=== PATIENT | female | born 1980 | race Caucasian/White ===

== ENCOUNTER 2021-08-14 18:49 | Inpatient (IN) | payer MEDICAID ==
[~2021-08-14] VITALS: Ht 170.2 cm; Wt 84.5 kg
[2021-08-14 19:40] LABS: CLARITY,URINE CLEAR (Clear); GLUCOSE, URINE NEGATIVE (Neg); KETONES,URINE NEGATIVE (Neg); LEUKOCYTE ESTERASE ,URINE NEGATIVE (Neg); NITRITES, URINE NEGATIVE (Neg); OCCULT BLOOD,URINE TRACE-INTACT (Neg); PROTEIN,URINE NEGATIVE (Neg); UROBILINOGEN,URINE 0.2 E.U/dL (0.2-1.0)
[2021-08-14 19:42] LABS: URINE HCG NEGATIVE (NEG)
[2021-08-14 19:43] LABS: COLOR,URINE YELLOW (Yellow); PH,URINE 8.5 (4.8-8.0); UA COLLECTION TYPE CLN CATCH MIDSTREAM
[2021-08-14 19:43] LABS: BASOPHILS # (AUTO) 0.1 X10'3 (0-0.2); EOSINOPHILS # (AUTO) 0.2 X10'3 (0-0.9); EOSINOPHILS % (AUTO) 4.2 % (0-6); HEMATOCRIT 36.8 % (35.0-45.0); LYMPHOCYTES # (AUTO) 1.6 X10'3 (1.1-4.8); MEAN CORPUSCULAR HEMOGLOBIN 34.6 PG (27.0-31.0); MEAN CORPUSCULAR HGB CONC 35.4 g/dL (33.0-36.5); MEAN CORPUSCULAR VOLUME 97.6 FL (78-98); MEAN PLATELET VOLUME 8.8 FL (7.4-10.4); MONOCYTES # (AUTO) 0.5 X10'3 (0-0.9); MONOCYTES % (AUTO) 9.1 % (2-12); NEUTROPHILS # (AUTO) 2.7 X10'3 (1.8-7.7); NEUTROPHILS % (AUTO) 53.7 % (42-75); PLATELET COUNT 221 X10'3 (140-440); RED BLOOD COUNT 3.77 X10'6 (4.20-5.60); RED CELL DISTRIBUTION WIDTH 13.5 % (11.5-14.5); WHITE BLOOD COUNT 5.1 X10'3 (4.5-11.0)
[2021-08-14 19:51] LABS: BACTERIA,URINE FEW /HPF (Neg); MUCUS STRANDS NONE SEEN /LPF (Neg); RBC,URINE 0-2 /HPF (0-2); SQUAMOUS EPITHELIAL CELL,UR FEW /LPF (FEW); WBC,URINE 0-4 /HPF (0-4)
[2021-08-14 20:01] LABS: ALANINE AMINOTRANSFERASE 19 U/L (12-78); ALBUMIN 3.2 G/DL (3.4-5.0); ALBUMIN/GLOBULIN RATIO 1.2 (1.1-1.5); ALKALINE PHOSPHATASE 44 IU/L (46-116); ANION GAP 3 (8-16); ASPARTATE AMINO TRANSFERASE 14 U/L (10-37); BILIRUBIN,TOTAL 0.2 MG/DL (0.1-1.0); BLOOD UREA NITROGEN 5 MG/DL (7-18); BUN/CREATININE RATIO 8.1 (6.6-38.0); CALCIUM 7.4 MG/DL (8.5-10.1); CHLORIDE 102 MMOL/L (99-107); CREATININE 0.62 MG/DL (0.40-0.90); GLUCOSE 96 MG/DL (70-104); LIPASE < 50 U/L (73-393); POTASSIUM 3.3 MMOL/L (3.5-5.1); SODIUM 137 MMOL/L (135-145); TOTAL CARBON DIOXIDE 32.2 MMOL/L (24-32); TOTAL PROTEIN 5.9 G/DL (6.4-8.2); eGFR > 90 ML/MIN
[2021-08-14] MEDS ORDERED: HYDROcodone/acetaminophen 10/325mg tab PO ONE (20:10)
[2021-08-14] MEDS ORDERED: CefTRIAXone/D5W-Rocephin 1gm 50 ML IV STA (21:41)
[2021-08-14] MEDS ORDERED: magnesium Cl slow-release 64mg tablet PO PRN (22:05)
[2021-08-14] MEDS ORDERED: magnesium 4gm in 100ml NS 100 ML IV PRN (22:05)
[2021-08-14] MEDS ORDERED: potassium Cl 20 mEq SR tablet PO PRN ×2 (22:05)
[2021-08-14] MEDS ORDERED: magnesium 2GM in 50ml NS 50 ML IV PRN (22:05)
[2021-08-14] MEDS ORDERED: mag hydrox/Alum hydrox/simeth 30ml oral suspension PO PRN (22:05)
[2021-08-14] MEDS ORDERED: magnesium hydroxide 30ml (MOM) UD suspension PO PRN (22:05)
[2021-08-14] MEDS ORDERED: potassium CL 10mEq/100ml bag 100 ML IV PRN (22:05)
[2021-08-14] MEDS ORDERED: acetaminophen 325mg tablet PO PRN (22:05)
[2021-08-14] MEDS ORDERED: morphine 2 MG/ML inj. syringe IV PRN (22:05)
[2021-08-14] MEDS ORDERED: ondansetron/PF 4mg/2ml inj IV PRN (22:05)
[2021-08-14] MEDS ORDERED: ESCI10TA PO (22:15)
[2021-08-14 22:29] LABS: MAGNESIUM 1.6 MG/DL (1.5-2.4)
[2021-08-14] MEDS: dextrose 5%-1/2 normal saline 1,000 ML IV SCH (23:01)
[2021-08-14 23:20] VITALS: BP 123/73
--- NOTE | 2021-08-14 23:20 | NUR ---
PATIENT ADMITTED TO ROOM 350B FROM ER FOR ACUTE CHOLECYSTITIS. PLACED COMFORTABLE IN BED. VITAL SIGNS AND TAKEN.
[2021-08-15] VITALS (20 sets, daily range): BP systolic 118–145; BP diastolic 68–92
[2021-08-15] MEDS: metroNIDAZOLE-Flagyl 500mg/NS 100 ML IV SCH ×4 (00:34→23:57)
[2021-08-15] MEDS: morphine 2 MG/ML inj. syringe IV PRN ×4 (05:53→19:53)
[2021-08-15 06:09] LABS: BASOPHILS % (AUTO) 0.6 % (0-1); EOSINOPHILS # (AUTO) 0.2 X10'3 (0-0.9); EOSINOPHILS % (AUTO) 4.9 % (0-6); HEMATOCRIT 35.4 % (35.0-45.0); HEMOGLOBIN 12.4 g/dl (12.0-16.0); LYMPHOCYTES # (AUTO) 1.5 X10'3 (1.1-4.8); LYMPHOCYTES % (AUTO) 29.4 % (21-51); MEAN CORPUSCULAR VOLUME 97.3 FL (78-98); MONOCYTES # (AUTO) 0.5 X10'3 (0-0.9); MONOCYTES % (AUTO) 9.5 % (2-12); NEUTROPHILS # (AUTO) 2.8 X10'3 (1.8-7.7); NEUTROPHILS % (AUTO) 55.6 % (42-75); PLATELET COUNT 204 X10'3 (140-440); RED BLOOD COUNT 3.64 X10'6 (4.20-5.60); RED CELL DISTRIBUTION WIDTH 13.5 % (11.5-14.5)
--- NOTE | 2021-08-15 06:25 | NUR ---
Patient in room [facility]. I have received report from Kat Stephens RN and had the opportunity to ask questions and assume patient care.
--- NOTE | 2021-08-15 06:27 | NUR ---
Problems reprioritized. Patient report given, questions answered & plan of care reviewed with MAJO RN.
[2021-08-15 06:31] LABS: ALANINE AMINOTRANSFERASE 19 U/L (12-78); ALBUMIN/GLOBULIN RATIO 1.2 (1.1-1.5); ALKALINE PHOSPHATASE 40 IU/L (46-116); ASPARTATE AMINO TRANSFERASE 12 U/L (10-37); BILIRUBIN,TOTAL 0.3 MG/DL (0.1-1.0); BLOOD UREA NITROGEN 6 MG/DL (7-18); BUN/CREATININE RATIO 10.9 (6.6-38.0); CALCIUM 7.5 MG/DL (8.5-10.1); CREATININE 0.55 MG/DL (0.40-0.90); GLUCOSE 108 MG/DL (70-104); MAGNESIUM 1.7 MG/DL (1.5-2.4); TOTAL CARBON DIOXIDE 27.8 MMOL/L (24-32); TOTAL PROTEIN 5.6 G/DL (6.4-8.2); eGFR > 90 ML/MIN
[2021-08-15] MEDS ORDERED: INDOCYANINE GREEN 25 MG/10 ML VIAL IV STA (07:19)
[2021-08-15] MEDS: enoxaparin 40mg/0.4ml syringe SUBCUT SCH (07:37)
[2021-08-15] MEDS: docusate sod 100mg capsule PO SCH ×2 (07:45→19:53)
[2021-08-15] MEDS: ciprofloxacin lact 400MG/200ML 200 ML IV SCH ×2 (07:45→19:54)
[2021-08-15] MEDS: K and/or MAG REPLACEMENT MC SCH ×2 (08:00→20:00)
[2021-08-15] MEDS: dextrose 5%-1/2 normal saline 1,000 ML IV SCH ×3 (08:05→23:57)
[2021-08-15] MEDS ORDERED: LIDOcaine 1% 30ml preserv. free vial ONE (08:31)
[2021-08-15] MEDS ORDERED: BUPIVAcaine 0.5% inj/PF 30 ML ONE (08:31)
[2021-08-15 08:36] LABS: PRE OP PARTIAL THROMB. TIME 35 SECONDS (22-32)
[2021-08-15] MEDS ORDERED: sevoflurane 250ml liquid IH ONE (09:02)
[2021-08-15] MEDS ORDERED: albuterol 60 PUFF/8GM Inhaler IH ONE (09:02)
[2021-08-15] MEDS ORDERED: FENTANYL CITRATE/PF 50 MCG/1 ML VIAL ONE ×2 (09:08→09:37)
[2021-08-15] MEDS ORDERED: midazolam 1 mg/ML 2ml injection ONE (09:09)
[2021-08-15] MEDS ORDERED: proCHLORperazine 10 MG/2 ml inj IV PRN (09:55)
[2021-08-15] MEDS ORDERED: morphine 2 MG/ML inj. syringe IV PRN (09:55)
[2021-08-15] MEDS ORDERED: meperidine/PF 25mg/ml syringe IV PRN ×2 (09:55)
[2021-08-15] MEDS ORDERED: ondansetron/PF 4mg/2ml inj IV PRN (09:55)
[2021-08-15] MEDS ORDERED: morphine 4 MG/ML inj SYRINge IV PRN (09:55)
[2021-08-15] MEDS ORDERED: ringers solution, lacted 1,000 ML IV SCH (09:55)
[2021-08-15] MEDS ORDERED: glycopyrrolate 0.2mg/ml inj ONE (10:06)
[2021-08-15] MEDS ORDERED: ondansetron/PF 4mg/2ml inj ONE (10:06)
[2021-08-15] MEDS ORDERED: dexamethasone sod phosphate 4mg/ml inj. ONE (10:06)
[2021-08-15] MEDS ORDERED: propofol inj 20 ML IV ONE (10:06)
[2021-08-15] MEDS ORDERED: LIDOcaine 2% (20mg/ml) 5ml vial ONE (10:06)
[2021-08-15] MEDS ORDERED: neostigmine methylsulfate 1 MG/ML 10ml vial ONE (10:06)
[2021-08-15] MEDS ORDERED: rocuronium 10mg/ml inj IV ONE (10:06)
[2021-08-15] MEDS ORDERED: meperidine/PF 25mg/ml syringe ONE (10:13)
--- NOTE | 2021-08-15 10:23 | NUR ---
Received from OR via hospital bed, accompanied by Anesthesiologist DR SMITH and report given by Anesthesiolgist. PT PRESENTS WITH PIV 20G RIGHT FOREARM, ABD DRESSING CLEAN DRY AND INTACT, VSS. Addendum: 08/15/21 at 1107 by Alicja Mederos RN, RN Amended: Links added.
[2021-08-15] MEDS ORDERED: acetaminophen 1,000mg/100ml IV 100 ML IV SCH (10:40)
[2021-08-15] MEDS ORDERED: HYDROcodone/acetaminophen 5mg/325mg tablet PO PRN (10:40)
[2021-08-15] MEDS: meperidine/PF 25mg/ml syringe IV PRN ×2 (10:44→11:00)
[2021-08-15] MEDS ORDERED: LORazepam 2 mg/ml vial ONE (10:48)
--- NOTE | 2021-08-15 11:30 | NUR ---
Received report from RESIDENTIAL SALES MANAGERAlicja
--- NOTE | 2021-08-15 11:53 | NUR ---
Report called to receiving nurse MAJO ALMANZAR. Transferred via HOSPITAL BED. Belongings LEFT IN PT ROOM 350B. BED IN LOW LOCKED POSITION, PT GIVEN TV AND CALL LIGHT, TECH PUT PT ON MONITOR. Special Issues communicated to receiving nurse. Addendum: 08/15/21 at 1157 by Alicja Mederos RN RN Amended: Links added.
[2021-08-15 13:19] LABS: POTASSIUM 3.5 MMOL/L (3.3-5.1)
[2021-08-15] MEDS: HYDROcodone/acetaminophen 10/325mg tab PO PRN ×3 (13:45→23:04)
--- NOTE | 2021-08-15 18:30 | NUR ---
Patient in room [facility]. I have received report from Graciela ALMANZAR and had the opportunity to ask questions and assume patient care.
--- NOTE | 2021-08-15 18:50 | NUR ---
Problems reprioritized. Patient report given, questions answered & plan of care reviewed with YOHAN Wilkinson.
[2021-08-15] MEDS ORDERED: ESCITALOPRAM OXALATE 5 MG TABLET PO SCH (21:00)
[2021-08-15] MEDS ORDERED: CefTRIAXone/D5W-Rocephin 1gm 50 ML IV SCH (21:00)
[2021-08-16] VITALS: BP 141/70
[2021-08-16] MEDS: morphine 2 MG/ML inj. syringe IV PRN ×2 (00:06→05:43)
[2021-08-16] MEDS: HYDROcodone/acetaminophen 10/325mg tab PO PRN (03:55)
[2021-08-16 04:00] VITALS: BP 140/62
--- NOTE | 2021-08-16 06:30 | NUR ---
Problems reprioritized. Patient report given, questions answered & plan of care reviewed with Adelita ALMANZAR and director community health nursing Anat .
--- NOTE | 2021-08-16 06:42 | NUR ---
Patient in room [facility] 350. I have received report from Jaja ALMANZAR and had the opportunity to ask questions and assume patient care.
[2021-08-16] MEDS: docusate sod 100mg capsule PO SCH (07:01)
[2021-08-16] MEDS: metroNIDAZOLE-Flagyl 500mg/NS 100 ML IV SCH (07:01)
[2021-08-16] MEDS: enoxaparin 40mg/0.4ml syringe SUBCUT SCH (07:03)
[2021-08-16 07:16] LABS: BASOPHILS % (AUTO) 0.6 % (0-1); EOSINOPHILS # (AUTO) 0.1 X10'3 (0-0.9); EOSINOPHILS % (AUTO) 0.9 % (0-6); HEMATOCRIT 37.1 % (35.0-45.0); HEMOGLOBIN 12.7 g/dl (12.0-16.0); LYMPHOCYTES # (AUTO) 1.3 X10'3 (1.1-4.8); LYMPHOCYTES % (AUTO) 17.6 % (21-51); MEAN CORPUSCULAR HEMOGLOBIN 33.8 PG (27.0-31.0); MEAN CORPUSCULAR HGB CONC 34.3 g/dL (33.0-36.5); MEAN CORPUSCULAR VOLUME 98.4 FL (78-98); MEAN PLATELET VOLUME 9.4 FL (7.4-10.4); MONOCYTES # (AUTO) 0.6 X10'3 (0-0.9); MONOCYTES % (AUTO) 8.7 % (2-12); NEUTROPHILS # (AUTO) 5.1 X10'3 (1.8-7.7); NEUTROPHILS % (AUTO) 72.2 % (42-75); PLATELET COUNT 213 X10'3 (140-440); RED BLOOD COUNT 3.76 X10'6 (4.20-5.60); RED CELL DISTRIBUTION WIDTH 13.4 % (11.5-14.5); WHITE BLOOD COUNT 7.1 X10'3 (4.5-11.0)
[2021-08-16 07:17] VITALS: BP 130/79
[2021-08-16 07:29] LABS: ALANINE AMINOTRANSFERASE 30 U/L (12-78); ALBUMIN 3.2 G/DL (3.4-5.0); ALBUMIN/GLOBULIN RATIO 1.2 (1.1-1.5); ALKALINE PHOSPHATASE 45 IU/L (46-116); ANION GAP 8 (8-16); ASPARTATE AMINO TRANSFERASE 20 U/L (10-37); BILIRUBIN,TOTAL 0.4 MG/DL (0.1-1.0); BLOOD UREA NITROGEN 7 MG/DL (7-18); BUN/CREATININE RATIO 10.9 (6.6-38.0); CHLORIDE 109 MMOL/L (99-107); CREATININE 0.64 MG/DL (0.40-0.90); GLUCOSE 109 MG/DL (70-104); MAGNESIUM 1.7 MG/DL (1.5-2.4); POTASSIUM 3.7 MMOL/L (3.5-5.1); SODIUM 139 MMOL/L (135-145); TOTAL CARBON DIOXIDE 22.5 MMOL/L (24-32); TOTAL PROTEIN 5.8 G/DL (6.4-8.2); eGFR > 90 ML/MIN
[2021-08-16] MEDS: K and/or MAG REPLACEMENT MC SCH (08:00)
[2021-08-16] MEDS ORDERED: oxyCODONE/APAP 5-325mg tablet PO PRN (08:25)
[2021-08-16] MEDS ORDERED: oxyCODONE/APAP 10/325mg tablet PO PRN (08:25)
--- NOTE | 2021-08-16 08:25 | NUR ---
PAGER ID: [phone] MESSAGE: Vani-Surg [phone] Re: 350B Lalo Degroot not working patient would like Percocet please call
--- NOTE | 2021-08-16 09:16 | NUR ---
PAGER ID: [phone] MESSAGE: [address] Dr[address] Quintero says Natanael May can be discharged with pain medications. Adelita [phone]
[2021-08-16 12:00] VITALS: BP 128/73
[2021-08-16] MEDS ORDERED: ONDA4TAB12 PO (12:38)
[2021-08-16] MEDS ORDERED: OXYC1TAB17 PO (12:38)
--- NOTE | 2021-08-16 13:10 | NUR ---
Patient education performed: discussed the importance of coughing and deep breathing. Offered patient an IS in house; however, patient declined. States she has two at home to use upon discharge. Will continue to cough and deep breathe every hour. No additional questions/concerns.
--- NOTE | 2021-08-16 13:48 | NUR ---
Patient discharged on paper, paper work signed by patient. Education completed and acknowledged of understanding completed.
--- NOTE | 2021-08-16 13:54 | NUR ---
Patient waiting on a ride. Ride will be picking up patient around 1400
--- NOTE | 2021-08-16 14:26 | NUR ---
Patient discharged, WC to the lobby by staff. All belongings taken. Patient aware to return to ER if any issues.
--- NOTE | 2021-08-16 14:33 | NUR ---
Student documentation & Medication Administration:: I have reviewed all interventions, assessments performed and documented by Anat DEL RIO. For all medication-pass' in the time frame of 1629-3574, all medication were reviewed, dispensed, administered and documented per hospital policy by Anat DEL RIO.
== END 2021-08-16 14:04 | disposition home or self-care (01) | DRG 263 ==
LOC: ER 18:52 → ED HOLD 22:11 → SUR 3N 23:25
PROVIDERS: ADMIT Internal Medicine; ATTEND Family Medicine
PROC: BF532Z0 Other Imaging of Gallbladder and Bile Ducts using Fluorescing Agent, Intraoperative (ICD-10-PCS; 2021-08-15)
PROC: 8E0W4CZ Robotic Assisted Procedure of Trunk Region, Percutaneous Endoscopic Approach (ICD-10-PCS; 2021-08-15)
PROC: 0WQF4ZZ Repair Abdominal Wall, Percutaneous Endoscopic Approach (ICD-10-PCS; 2021-08-15)
PROC: 0FT44ZZ Resection of Gallbladder, Percutaneous Endoscopic Approach (ICD-10-PCS; principal; 2021-08-15 09:02)
DX: K80.00 Calculus of gallbladder with acute cholecystitis without obstruction (principal); E87.6 Hypokalemia; F17.210 Nicotine dependence, cigarettes, uncomplicated; Z20.822 Contact with and (suspected) exposure to COVID-19; F32.A Depression, unspecified; K42.9 Umbilical hernia without obstruction or gangrene; F41.9 Anxiety disorder, unspecified; Z88.0 Allergy status to penicillin; Z88.8 Allergy status to other drugs, medicaments and biological substances; Z79.899 Other long term (current) drug therapy
CPT/HCPCS: 36415; 71045; 76700; 80053; 81001; 81025; 82948; 83690; 83735; 85025; 85610; 85730; 87081; 87635; 93005; 96365; 99285; A4215; A4618; A7000; G0378; J0131; J0696; J0744; J1100; J1650; J2060; J2175; J2250; J2270; J2405; J2704; J2710; J3010; J3490; J7030; J7042; J7120; S0020

== ENCOUNTER 2025-04-18 15:19 | Inpatient (IN) | payer MEDICAID ==
[~2025-04-18] VITALS: Ht 170.2 cm; Wt 94.3 kg
[2025-04-18] MEDS: heparin, porcine 5000 units/ml vial SQ SCH (01:00)
[2025-04-18] MEDS: K and/or MAG REPLACEMENT MC SCH (01:00)
[~2025-04-18 15:19] MED LIST: ESCI10TA PO; ONDA-243 PO; OXYC1TAB17 PO
--- NOTE | 2025-04-18 15:35 | ELECTROCARDIOGRAPH REPORT ---
[facility] Test Date: 2025-04-18 Test Time: 15:24:33 Pat Name: JORGE DOMINGUEZ Department: EMERGENCY ROOM Room: [place] [address] Gender: F Licensed And Certified Midwife: ELLY : 1980 Requested By: MARTHA LOPEZ Order Number: [id number] Reading MD: Dr. CHRIS Hernandez Measurements Intervals [place] Rate: 96 P: 0 SC: 0 QRS: 0 QRSD: 112 T: 27 QT: 394 QTc: 498 Interpretive Statements Atrial fibrillation Ventricular premature complex Aberrant complex Incomplete left bundle branch block Borderline prolonged QT interval Electronically Signed On 04-20-2025 11:47:[address] CHRIS Hernandez Please click the below link to view image of tracing.
--- NOTE | 2025-04-18 15:44 | Physician Documentation ---
History of Present Illness ~ Chief Complaint: Palpitations Stated Complaint: IRREG HEART RATE Time Seen by MD: 15:59 HPI MSE: Is a very pleasant 45-year-old female that presents to the emergency department for evaluation of dizziness and lightheadedness with palpitations ti mes the last several weeks. Patient reports that she previously has previously was on antihypertensives but they stopped her antihypertensives or she stopped them because her blood pressure normalized per patient. Patient reports that she has had significant progression of the dizziness palpitations over the last couple of weeks. Patient denies denies any shortness of breath chest pain chest pressure or discomfort at this time. No other symptoms reported at this time. Medication Reconciliation Allergies: Coded Allergies: tramadol (Verified Allergy, Intermediate, VOMITING, 04/18/25) Penicillins (Verified Allergy, Unknown, 04/18/25) pt tolerated rocephin 08/2021 Scheduled Escitalopram Oxalate (Lexapro), 1 TAB PO HS, (Reported) Scheduled PRN ONDANSETRON ODT 4mg tablet (Ondansetron Odt), 4 MG PO Q6H PRN for nausea/vomiting Oxycodone Hcl/Acetaminophen (Oxycodone-Acetaminophen 10-325), 1 TAB PO Q6H PRN for severe pain (7-10) Past Medical History Past Surgical History: other Alcohol Use: Occasionally Drug Use: none Lives with: Family Review of Systems All Other Systems at this time: Reviewed and Negative Physical Exam Vital Signs: RN Vital Signs have been reviewed: Yes, Temperature: 97.3, Source: Temporal, Heart Rate: 77, Respiratory Rate: 16, BP: 204/121, Pulse Oximetry: 100, Weight: 94.300 Oxygen Flow Rate: 0 Physical Exam General: Alert, no apparent distress. Respiratory: Lungs clear, no respiratory distress. Cardiovascular: irregular rhythm, no murmurs. Gastrointestinal: Soft, NT, nondistended. Bowels sounds present. Extremities: Normal range of motion, no deformity. Neurologic: Oriented x4. Psychiatric: Normal mood and affect. Skin: Normal color, warm and dry. No edema, no ecchymosis. Progress Results/Orders Results/Orders Orders - MARTHA LOPEZ MD Chest,Single View (04/18/25 15:38) Monitor (04/18/25 15:38) Saline Lock (04/18/25 15:38) Oxygen (04/18/25 15:38) Hs Troponin I W Calculations (04/18/25 17:38) Hs Troponin I W Calculations (04/18/25 18:38) Cult Urine + [address] (04/18/25 17:23) Page Hospitalist (04/18/25 17:24) Completed Orders - MARTHA LOPEZ MD Electrocardiogram (04/18/25 ) Chest,Single View (04/18/25 15:38) Cbc/Diff (04/18/25 15:38) BMP (04/18/25 15:38) PBNP (04/18/25 15:38) Hs Troponin I W Calculations (04/18/25 15:38) Drug Screen, Urine (04/18/25 16:57) Ua W/Microscopic, Cult If Ind (04/18/25 16:40) Vital Signs 04/18/25 04/18/25 04/18/25 15:35 16:29 16:37 Temp 97.3 Pulse 77 70 Resp 16 17 B/P (MAP) 204/121 171/95 (120) Pulse Ox 100 97 O2 Flow Rate 0 Laboratory Tests Test 04/18/25 15:28 04/18/25 15:41 04/18/25 16:40 White Blood Count 6.5 Red Blood Count 4.05 L Hemoglobin 13.5 Hematocrit 38.7 Mean Corpuscular Volume 95.4 Mean Corpuscular Hemoglobin 33.2 H Mean Corpuscular Hemoglobin Concent 34.8 Red Cell Distribution Width 12.5 Platelet Count 281 Mean Platelet Volume 8.1 Neutrophils (%) (Auto) 43.0 Lymphocytes (%) (Auto) 43.2 Monocytes (%) (Auto) 7.9 Eosinophils (%) (Auto) 5.0 Basophils (%) (Auto) 0.9 Neutrophils # (Auto) 2.8 Lymphocytes # (Auto) 2.8 Monocytes # (Auto) 0.5 Eosinophils # (Auto) 0.3 Basophils # (Auto) 0.1 CBC Comment Sodium Level 141 Potassium Level 3.5 Chloride Level 104 Carbon Dioxide Level 32.4 H Anion Gap 5 L Blood Urea Nitrogen 15 Creatinine 0.71 Estimated GFR/1.73 m2 90 BUN/Creatinine Ratio 21.1 H Glucose Level 106 H Calcium Level 7.9 L Troponin I High Sensitivity 4 Pro-B-Type Natriuretic Peptide 215 H Albumin 3.8 Chemistry Comments Glucometer 97 Urine Specimen Description Cln catch midstream Urine Color Yellow Urine Clarity Clear Urine pH 8.5 Urine Specific [place] 1.010 Urine Protein Negative Urine Glucose (UA) Negative Urine Ketones Negative Urine Occult Blood Negative Urine Nitrite Negative Urine Bilirubin Negative Urine Urobilinogen 0.2 Urine Leukocyte Esterase Trace H Urine RBC 0-2 Urine WBC 5-10 H Urine Squamous Epithelial Cells Few Urine Bacteria None seen Urine Mucus Few Urine Culture Indicated Indicated Volume Urine Centrifuged 10 ml Urine Comment Urine Opiates Screen Negative Urine Methadone Screen Negative Urine Fentanyl Screen Negative Urine Barbiturates Screen Negative Urine Phencyclidine Screen Negative Urine Amphetamines Screen Negative Urine Benzodiazepines Screen Negative Urine Cocaine Screen Negative Urine Cannabinoids Screen Negative Drug Screen Comment EKG/XRAY/CT/US/VASC/MRI EKG : Indication: weakness EKG: a fib Additional Comment my interpretation: atrial fibrillation, no STEMI criteria, no WPW Chest X-Ray : Interpreted By: self Views: 1 VIEW Indication: dizzy Lungs: normal Mediastinum: normal Abdomen: normal Impression: no acute disease Medical Decision Making Additional information obtaine: N/A Findings 45 year old female noted to be in atrial fibrillation in triage. Workup has otherwise demonstrated a UTI. Will admit for new onset atrial fibrillation. Differential Dx:Considerations: Include: other Differential Dx:Considerations: Include other Additional Information Ddx = anemia, , substance intoxication, vertigo, near syncope, dysrhythmia, atrial fibrillation Departure Disposition: 09 ADMITTED INPATIENT Admitted to Inpatient Unit: to hospitalist Admission Level of Care: Med/Surg with Tele Impression: Primary Impression: Atrial fibrillation Additional Impression: UTI (urinary tract infection) Condition: Stable Discharge Instructions: Atrial Fibrillation, [id number] Referrals: NO PRIMARY CARE PROVIDER (PCP) Education Educated: Patient Educated regarding: diagnosis, treatment, prognosis, need for follow up Signature Scribe Signature: . Attestation: . SHYLA CABALLERO Apr 18, 2025 15:44 MARTHA LOPEZ MD Apr 18, 2025 17:21
--- NOTE | 2025-04-18 15:57 | RADIOLOGY REPORT ---
EXAM: DI CHEST,SINGLE VIEW HISTORY: CP COMPARISON: None TECHNIQUE: PA upright view of the chest was performed. FINDINGS: No pneumothorax, consolidative infiltrates, or pulmonary edema. There is central peribronchial thickening. The heart is not enlarged. IMPRESSION: Reactive airways disease. The lungs are otherwise clear.
[2025-04-18 16:03] LABS: MEAN PLATELET VOLUME 8.1 FL (7.4-10.4); RED CELL DISTRIBUTION WIDTH 12.5 % (11.5-14.5)
[2025-04-18 16:18] LABS: CREATININE 0.71 MG/DL (0.40-0.90); PRO BRAIN NATRIURETIC PEPTIDE 215 PG/ML (0-125); TOTAL CARBON DIOXIDE 32.4 MMOL/L (24-32); eCRCL 99 ML/MIN; eGFR 90 ML/MIN
[2025-04-18 17:16] LABS: LEUKOCYTE ESTERASE ,URINE TRACE (Neg); NITRITES, URINE NEGATIVE (Neg); OCCULT BLOOD,URINE NEGATIVE (Neg)
[2025-04-18 17:17] LABS: UA COLLECTION TYPE CLN CATCH MIDSTREAM
[2025-04-18 17:22] LABS: SQUAMOUS EPITHELIAL CELL,UR FEW /LPF (FEW)
[2025-04-18 17:23] LABS: MUCUS STRANDS FEW /LPF (Neg)
[2025-04-18 17:24] LABS: URINE AMPHETAMINE SCREEN NEGATIVE (Neg); URINE BARBITUATE SCREEN NEGATIVE (Neg); URINE BENZODIAZEPINES SCREEN NEGATIVE (Neg); URINE CANNABINOID SCREEN NEGATIVE (Neg); URINE COCAINE SCREEN NEGATIVE (Neg); URINE METHADONE SCREEN NEGATIVE (Neg); URINE OPIATE SCREEN NEGATIVE (Neg); URINE PHENCYCLIDINE SCREEN NEGATIVE (Neg)
[2025-04-18] MEDS: sulfamethoxazole/trimethoprim DS (800/160mg) tablet PO ONE (17:48)
[2025-04-18] MEDS ORDERED: potassium Cl 40MEQ/1/2NS 520ml 520 ML IV PRN (18:00)
[2025-04-18] MEDS ORDERED: mag hydrox/Alum hydrox/simeth 30ml oral suspension PO PRN (18:00)
[2025-04-18] MEDS ORDERED: magnesium sulf-water 4G/100mL 100 ML IV PRN (18:00)
[2025-04-18] MEDS ORDERED: bisacodyl 10mg suppository rectal RC PRN (18:00)
[2025-04-18] MEDS ORDERED: ondansetron/PF 4mg/2ml inj IV PRN (18:00)
[2025-04-18] MEDS ORDERED: magnesium sulf-water 2g/50mL 50 ML IV PRN (18:00)
[2025-04-18] MEDS ORDERED: magnesium Cl slow-release 64mg tablet PO PRN (18:00)
[2025-04-18] MEDS ORDERED: magnesium hydroxide 30ml (MOM) UD suspension PO PRN (18:00)
[2025-04-18] MEDS ORDERED: morphine 4 MG/ML inj SYRINge IV PRN ×2 (18:00)
[2025-04-18] MEDS ORDERED: HYDROcodone/acetaminophen 5mg/325mg tablet PO PRN (18:00)
[2025-04-18] MEDS ORDERED: potassium Cl 20 mEq SR tablet PO PRN ×2 (18:00)
[2025-04-18] MEDS ORDERED: HYDROcodone/acetaminophen 10/325mg tab PO PRN (18:00)
[2025-04-18] MEDS ORDERED: NO HOME MEDS (19:35)
--- NOTE | 2025-04-18 22:59 | HISTORY AND PHYSICAL ---
History & Physical Providers to CC ~ History of Present Illness Reason for Admit\Complaint: Palpitations History of Present Illness Patient is 45-year-old female that presents to the emergency department for evaluation of dizziness and lightheadedness with palpitations times the last several weeks. Patient is following with new primary care physician since last three months for low potassium levels. She mentioned that they told her that she is drinking baking soda that is making her potassium to go low. Patient reports that she previously has previously was on antihypertensives but she stopped it because blood pressure was normal and she was get a dizzy because of blood pressure medication. Dizziness she noticed since 2-1/2 weeks. Patient was getting blood draw and she was about to pass out while they were drawing her blood so she came to ER for further management. She denies that she has any anxiety disorder. Patient has history of cardiac arrest last year in November in [facility] 2023. 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 Patient had laceration over right side of her forehead due to alcohol intoxication and fall. Further workup done in ER EKG showed atrial fibrillation with a RVR. Her urine testing also showed signs of UTI but patient denies any symptoms of acute UTI. Hospitalist service contacted for admission and further management . Allergies: Coded Allergies: tramadol (Verified Allergy, Intermediate, VOMITING, 04/18/25) Penicillins (Verified Allergy, Unknown, 04/18/25) pt tolerated rocephin 08/2021 Home Medications Home Medications Active Oxycodone-Acetaminophen 10-325 (Oxycodone Hcl/Acetaminophen) 1 Each Tablet 1 Tab PO Q6H PRN I accessed the state of [place] [employer] controlled prescription database Cures- on this patient Ondansetron Odt (Ondansetron HCl) 4 Mg Tab.rapdis 4 Mg PO Q6H PRN Reported No Home Medications (Home Med List) Each Lexapro (Escitalopram Oxalate) 10 Mg Tablet 1 Tab PO HS Past Medical History Past Medical History Hypertension Past Surgical History Surgical History Comment Right facial laceration surgery Past Social History Social History Comment Patient lives at home with her kids. Patient denied use of any alcohol tobacco or any recreational drugs to me but she has history of alcohol intoxication in January 2025 ROS ROS Review of system as mentioned above in HPI rest of the review of system unremarkable Exam Vitals: Vital Signs Date Time Temp Pulse Resp B/P (MAP) Pulse Ox O2 Delivery O2 Flow Rate FiO2 04/18/25 18:00 63 16 137/92 (107) 97 0 04/18/25 15:35 97.3 General: General-patient not in any acute distress, alert awake oriented , age- appropriate, looks comfortable HEENT-atraumatic normocephalic, neck supple without elevated JVD, no thyromegaly or carotid bruit. No lymphadenopathy bilaterally. Eyes-no icterus or pallor seen in eyes Chest-clear to auscultation bilaterally, breathing nonlabored no tachypnea, no wheezing, no crepitation, no crackles. Heart-S1-S2 normal, regular heart rate no murmur Abdomen bowel sounds positive on auscultation, soft nondistended nontender no guarding, no rigidity Skin no active skin rash Neurology-grossly intact, nonfocal alert awake oriented Extremity- no pedal edema able to move all 4 extremities Psychiatry - patient is not confused or agitated cooperated during physical examination Diagnostic Data Last Recorded Lab Results: 04/18/25 1528 04/18/25 1528 Additional Plan 45-year-old female that presents to the emergency department for evaluation of dizziness and lightheadedness with palpitations times the last several weeks. Initially her blood pressure was 204/121 which improved to normal levels. Patient is admitted for atrial fibrillation with RVR, possible UTI, hypertension, dizzyness. Ordered echocardiogram and we will follow the results. Atrial fibrillation currently rate controlled I have not started patient on any medication for rate control at this point of time. Her heart rhythm converted back to normal sinus rhythm we will continue to monitor. Patient denies any symptoms of UTI empirically started on antibiotic therapy we will follow the culture results. Blood pressure improved. Detailed counseling done regarding risk and consequences of uncontrolled hypertension with patient in visit. We will continue to monitor patient's labs and vitals closely. Code status discussed with the patient patient wishes full code . Time spent in discussing code status 16 minutes. We will do home medication reconciliation once updated in electronic by nursing staff or pharmacist. Further management depending on response to treatment . I will continue to follow patient in a.m. Date of Service: Apr 18, 2025 Billing Provider: LISA ORDAZ MD Common Visit Codes: 87643-GJLRNJL INP/OBS CARE (HIGH) Secondary Visit Codes: 45033-ZOERIDDH CARE PLAN 30 MINUTES LISA ORDAZ MD Apr 18, 2025 22:59
[2025-04-19 00:50] VITALS: BP 143/71; PULSE 59; RESP 16; TEMP 98; O2SAT 98
[2025-04-19 01:00] VITALS: RESP 16; O2SAT 98
[2025-04-19 02:00] VITALS: BP 138/73; PULSE 54; RESP 21; TEMP 98.2; O2SAT 96
[2025-04-19 06:00] VITALS: BP 124/76; PULSE 59; RESP 18; TEMP 97.3; O2SAT 100
[2025-04-19 06:12] LABS: MEAN PLATELET VOLUME 8.1 FL (7.4-10.4); RED CELL DISTRIBUTION WIDTH 12.6 % (11.5-14.5)
[2025-04-19 06:40] LABS: CREATININE 0.71 MG/DL (0.40-0.90); TOTAL CARBON DIOXIDE 28.4 MMOL/L (24-32); eCRCL 99 ML/MIN; eGFR 90 ML/MIN
[2025-04-19 08:00] VITALS: RESP 18; O2SAT 100
[2025-04-19] MEDS: CefTRIAXone 2gm/D5W 50ml BAG 50 ML IV SCH (08:00)
[2025-04-19 11:00] VITALS: BP 125/86; PULSE 74; RESP 15; TEMP 97.8; O2SAT 96
[2025-04-19] MEDS ORDERED: AMLO5TAB16 PO (11:30)
--- NOTE | 2025-04-19 11:59 | RADIOLOGY REPORT ---
Procedure: DI SINUSES COMPLETE (3VWS MIN) 04/19/2025 11:37 AM TECHNIQUE: DI SINUSES COMPLETE (3VWS MIN) Indication: possible sinusits , heavyness over face Comparison: None FINDINGS: Bones: No acute fracture or dislocation. Joint spaces are maintained. Soft tissues: No mucosal thickening. No air-fluid levels are seen IMPRESSION: 1. No evidence of sinusitis
--- NOTE | 2025-04-19 18:52 | DISCHARGE SUMMARY ---
Discharge Summary Providers to CC ~ Discharge Summary Admission Diagnosis: Afib with RVR , HYPERTENSIVE URGENCY, possible UTI Hospital Course DATE OF ADMISSION: 04/18/25 DATE OF DISCHARGE:04/19/25 CBC testing done on April 19, 2025 WBC 4.4 hemoglobin 12.9 hematocrit 37.3 platelet count 229. Serum chemistry done on April 19, 2025 sodium 143 potassium 4.6 creatinine 0.71 GFR 90 normal liver enzymes. Cardiac markers unremarkable proBNP 215. Urine culture showed no growth after 1 day. SINUSES COMPLETE (3VWS MIN)IMPRESSION: 1. No evidence of sinusitis Echocardiogram done on April 19, 2025 left ventricular ejection fraction 55- 60% overall systolic function is normal. Elevated right heart pressures rest of the echo unremarkable CHEST,SINGLE VIEWIMPRESSION: Reactive airways disease. The lungs are otherwise clear. Discharge Diagnosis\Comment: History of hypertension,dizziness and lightheadedness with palpitations Operations\Procedures: None Consultants: None Complications: None Condition on DC: Stable New Medications: Amlodipine Besylate (Amlodipine Besylate) 5 Mg Tablet 1 TAB PO DAILY for 30 Days, #30 TAB 0 Refills Continued Medications: Escitalopram Oxalate (Lexapro) 10 Mg Tablet 1 TAB PO HS, TAB Discontinued Medications: Home Med List (No Home Medications) Each ONDANSETRON ODT 4mg tablet (Ondansetron Odt) 4 Mg Tab.rapdis 4 MG PO Q6H PRN for nausea/vomiting, #14 TAB Oxycodone Hcl/Acetaminophen (Oxycodone-Acetaminophen 10-325) 1 Each Tablet 1 TAB PO Q6H PRN for severe pain (7-10), #20 TAB I accessed the state of [place] [employer] controlled prescription database Cures- on this patient Discharge Summary: 45-year-old female that presents to the emergency department for evaluation of dizziness and lightheadedness with palpitations times the last several weeks. Initially her blood pressure was 204/121 which improved to normal levels. Patient is admitted for atrial fibrillation with RVR, possible UTI, hypertension, dizzyness. Ordered echocardiogram and we followed the results. Atrial fibrillation currently rate controlled , Her heart rhythm converted back to normal sinus rhythm we will continue to monitor. Patient denies any symptoms of UTI empirically started on antibiotic therapy we will follow the culture results. Blood pressure improved. Detailed counseling done regarding risk and consequences of uncontrolled hypertension with patient in visit. Patient also feels that she might be having sinus infection x-ray of the sinuses done which was unremarkable. Patient is currently vapes Patient is feeling better she has been afebrile and getting discharged home in stable condition. Patient is seen and examined on the day of discharge. All labs, diagnostic workup and discharge plan discussed with patient and family members in detail before her discharge. All questions and queries answered to the best of my professional medical knowledge. I heard patient's concerns and address appropriately. Patient was cleared by Physical therapy team for home discharge . truck sales manager Kelly involved in patient's discharge plan. Discharge instructions provided to the patient. Patient needs follow-up with primary care physician and can get ENT referral for heaviness over sinus area. She will get benefit in getting referral to packaging specialist for palpitat ions. Adjustment of blood pressure medication done during hospital stay. Maintain blood pressure and heart rate log book for 2-3 weeks and follow-up with the primary care physician/ packaging specialist for hypertension. Strongly advised to stop vaping and risks explained. General-patient not in any acute distress, alert awake oriented , age- appropriate, looks comfortable HEENT-atraumatic normocephalic, neck supple without elevated JVD, no thyromegaly or carotid bruit. No lymphadenopathy bilaterally. Eyes-no icterus or pallor seen in eyes Chest-clear to auscultation bilaterally, breathing nonlabored no tachypnea, no wheezing, no crepitation, no crackles. Heart-S1-S2 normal, regular heart rate no murmur Abdomen bowel sounds positive on auscultation, soft nondistended nontender no guarding, no rigidity Skin no active skin rash. Healed scar present over right side of the eyebrow Neurology-grossly intact, nonfocal alert awake oriented Extremity- no pedal edema able to move all 4 extremities Psychiatry - patient is not confused or agitated cooperated during physical examination *Problems/Diagnosis: (1) Atrial fibrillation Status: Acute Total Time Spent on D/C: > 30 Minutes Date of Service: Apr 19, 2025 Billing Provider: LISA ORDAZ MD Common Visit Codes: 44974-XLA/OBS DISCH DAY >30min LISA ORDAZ MD Apr 19, 2025 18:51
--- NOTE | 2025-04-20 06:17 | CARDIOLOGY REPORT ---
APPROVED REPORT EXAM: Comprehensive 2D, Doppler, and color-flow Echocardiogram. Patient Location: 3026 A Heart Rate: 60's bpm Rhythm: SINUS Indications HYPERTENSION DIZZINESS ATRIAL FIBRILLATION WITH RVR 2D Dimensions RVDd 3.1 cm LA Diam 4.5 cm IVSd 0.9 (0.7-1.1cm) LVDd 5.3 cm PWd 0.8 (0.7-1.1cm) IVSs 1.3 (0.8-1.2cm) LVDs 3.9 (2.5-4.0cm) PWs 1.3 (0.8-1.2cm) LVOT Diameter 2.06 (1.8-2.4cm) LVEF(%) 50.8 (>50%) FS (%) 26.1 % SV 69.1 ml CO 4.4 L/min M-Mode Dimensions Left Atrium(MM) 4.22 (2.5-4.0cm) Aortic Root 3.16 (2.2-3.7cm) Aortic Cusp Exc 2.09 (1.5-2.0cm) Aortic Valve AoV Peak Louis. 175.3 cm/s AoV VTI 34.4 cm AO Peak GR. 12.3 mmHg AO Mean GR. 7 mmHg LVOT VTI 29.76 cm LVOT Peak Louis. 156.4 cm/s GRAHAM(VTI)/BSA 2.88 cm2/m2 GRAHAM (VTI) 2.88 cm2 AV DI 0.87 % Mitral Valve MV E Velocity 100.0 cm/s MV Peak Gr. 5 mmHg MV DECEL TIME 244 ms MV A Velocity 92.4 cm/s MV PHT 60 ms E/A Ratio 1.1 MVA (PHT) 3.67 cm2 MV VMax 115.0 cm/s TDI Lateral E' P. V 9.12 cm/s E/Lateral E' 11.0 Tricuspid Valve TR P. Velocity 253 cm/s RAP ESTIMATE 10 mmHg TR Peak Gr. 26 mmHg RVSP 36 mmHg Pulmonary Vein S1 Velocity 57.7 cm/s D2 Velocity 59.8 cm/s PVa Velocity 21.0 cm/s PVa Duration 148 msec LEFT VENTRICLE Normal LV size and wall thickness. Overall systolic function is normal. LVEF is 55-60%. RIGHT VENTRICLE RV is normal size and function. Elevated right heart pressures with an RVSP of 36 mmHg. ATRIA Left atrium is mildly dilated. AORTIC VALVE Trileaflet AV appears mildly sclerotic without stenosis. No insufficiency. MITRAL VALVE Mild MV annular calcification without stenosis. Trace regurgitation. TRICUSPID VALVE TV appears structurally normal with trace regurgitation. PULMONIC VALVE Normal PV without stenosis, physiologic insufficiency. GREAT VESSELS The aortic root is normal in size. PERICARDIUM Normal pericardium. No effusion. Pleural effusion is present. Other Information Study Quality: Adequate Conclusion Normal LV size and wall thickness. Overall systolic function is normal. LVEF is 55-60%. RV is normal size and function. Elevated right heart pressures with an RVSP of 36 mmHg. Left atrium is mildly dilated. Trileaflet AV appears mildly sclerotic without stenosis. No insufficiency. Mild MV annular calcification without stenosis. Trace regurgitation. TV appears structurally normal with trace regurgitation. Normal pericardium. No effusion.
== END 2025-04-19 12:55 | disposition home or self-care (01) | DRG 201 ==
LOC: ER 15:20 → ED HOLD 18:03 → EDBEDREQ 23:27 → PCU 3S 04-19 00:50
PROVIDERS: ADMIT Internal Medicine; ATTEND Internal Medicine
DX: I48.91 Unspecified atrial fibrillation (principal); F10.129 Alcohol abuse with intoxication, unspecified; N39.0 Urinary tract infection, site not specified; I10 Essential (primary) hypertension; F41.9 Anxiety disorder, unspecified; Z88.8 Allergy status to other drugs, medicaments and biological substances; Z88.0 Allergy status to penicillin
CPT/HCPCS: 36415; 70220; 71045; 80048; 80053; 80305; 81001; 82948; 83880; 84484; 85025; 87081; 87088; 93005; 93306; 99285; G0378; J0696; J1644; J7040